=== PATIENT | male | born 1995 | race African-American/Black ===

== ENCOUNTER 2020-12-25 15:14 | Emergency (ER) | payer BC ==
[~2020-12-25] VITALS: Ht 175.3 cm; Wt 82.1 kg
[2020-12-25 15:15] VITALS: BP 147/87
== END 2020-12-25 16:23 | disposition home or self-care (01) ==
LOC: ER 15:14
PROVIDERS: Student in an Organized Health Care Education/Training Program
DX: R09.81 Nasal congestion (principal); Z20.822 Contact with and (suspected) exposure to COVID-19; M79.10 Myalgia, unspecified site